=== PATIENT | female | born 1965 | race African-American/Black ===

== ENCOUNTER 2020-07-24 11:48 | Emergency (ER) | payer SELFPAY ==
[~2020-07-24] VITALS: Ht 165.1 cm; Wt 60.0 kg
[2020-07-24] MEDS ORDERED: HYDROCODONE/ACETAMINOPHEN 5/325MG TABLET PO ONE (12:30)
[2020-07-24] MEDS ORDERED: TRAM50TA3 MT (13:42)
[2020-07-24] MEDS ORDERED: ACET650T37 MT (13:42)
[2020-07-24 14:27] VITALS: BP 109/73
== END 2020-07-24 14:28 | disposition home or self-care (01) ==
LOC: ER 11:48
DX: S90.121A Contusion of right lesser toe(s) without damage to nail, initial encounter (principal); M79.674 Pain in right toe(s); Z79.899 Other long term (current) drug therapy; X58.XXXA Exposure to other specified factors, initial encounter; Y93.89 Activity, other specified; Y92.89 Other specified places as the place of occurrence of the external cause; Y99.8 Other external cause status
CPT/HCPCS: 73630; 99283

== ENCOUNTER 2021-01-08 23:39 | Emergency (ER) | payer MEDICAID ==
[~2021-01-08] VITALS: Ht 162.6 cm; Wt 50.0 kg
[~2021-01-08 23:39] MED LIST: ACET650T37 MT; TRAM50TA3 MT
[2021-01-08] MEDS ORDERED: IBUPROFEN 600MG TABLET PO STA (23:56)
[2021-01-09] MEDS ORDERED: FLUORESCEIN SODIUM 1MG/STRIP RIGHTEYE ONE
[2021-01-09] MEDS ORDERED: BALANCED SALT IRRIG SOLN 15ML IR ONE
[2021-01-09] MEDS ORDERED: TETRACAINE 0.5% OPHTH DROPS 4ML RIGHTEYE ONE
[2021-01-09] MEDS ORDERED: OFLO5DRO3 RIGHTEYE (00:56)
[2021-01-09] MEDS ORDERED: NAPR-681 PO (00:56)
[2021-01-09 01:37] VITALS: BP 123/71
== END 2021-01-09 01:45 | disposition home or self-care (01) ==
LOC: ER 23:39
DX: H10.31 Unspecified acute conjunctivitis, right eye (principal); R51.9 Headache, unspecified; Z98.890 Other specified postprocedural states
CPT/HCPCS: 99283